=== PATIENT | female | born 1960 | race Caucasian/White ===

== ENCOUNTER → 2017-05-10 | Outpatient (CLI) | payer OTHER ==
[~2017-05-10] MED LIST: ACIPHEX 20 MG T20 MG PO; ALPRAZOLAM 0.50.5 M1 PO; ASPIR 8181 MG PO; DARVON-N100 MG PO; ESTROVEN 155 M155 MG PO; FLAX OIL1000 MG PO; GEODON40 MG PO; GLUCOSAMINE HC500 MG PO; LOVASTATIN 20 M20 MG PO; LOVASTATIN PO; MULTIVITAMIN PO; NORCO 5-325 TA1 EACH PO; PRINIVIL10 MG PO; PROZAC10 MG PO; VITAMIN E400 UNIT PO; ZYBAN150 MG PO
== END ==
LOC: M.RAD 04-19 11:59 → M.MRI 04-28 17:30 → M.RAD 13:00 → M.MRI 13:00
DX: Z12.31 Encounter for screening mammogram for malignant neoplasm of breast (principal); S46.812A Strain of other muscles, fascia and tendons at shoulder and upper arm level, left arm, initial encounter; M25.512 Pain in left shoulder; X58.XXXA Exposure to other specified factors, initial encounter; Y93.89 Activity, other specified; Y92.89 Other specified places as the place of occurrence of the external cause; Y99.8 Other external cause status

== ENCOUNTER 2017-05-18 06:44 | Emergency (ER) | payer OTHER ==
[~2017-05-18] VITALS: Ht 172.7 cm; Wt 122.5 kg
[~2017-05-18 06:44] MED LIST changes: -NORCO 5-325 TA1 EACH PO
[2017-05-18] MEDS ORDERED: NORCO 5-325 TA1 EACH PO (08:15)
[2017-05-18 08:34] VITALS: BP 142/101
== END 2017-05-18 08:34 | disposition home or self-care (01) ==
LOC: M.ERS 06:44
DX: S62.666A Nondisplaced fracture of distal phalanx of right little finger, initial encounter for closed fracture (principal); F32.9 Major depressive disorder, single episode, unspecified; F41.0 Panic disorder [episodic paroxysmal anxiety]; Z85.850 Personal history of malignant neoplasm of thyroid; Z88.5 Allergy status to narcotic agent; Z88.0 Allergy status to penicillin; X58.XXXA Exposure to other specified factors, initial encounter; Y93.89 Activity, other specified; Y92.89 Other specified places as the place of occurrence of the external cause; Y99.0 Civilian activity done for income or pay

== ENCOUNTER → 2019-02-12 | Outpatient (CLI) | payer OTHER ==
[~2019-02-12] MED LIST changes: +NORCO 5-325 TA1 EACH PO
== END ==
LOC: M.RAD 13:58
DX: Z12.31 Encounter for screening mammogram for malignant neoplasm of breast (principal)

== ENCOUNTER → 2019-02-15 | Outpatient (CLI) | payer OTHER | LOC: M.ULTRA 13:08 | DX: N63.13 Unspecified lump in the right breast, lower outer quadrant (principal); N63.23 Unspecified lump in the left breast, lower outer quadrant ==

== ENCOUNTER → 2019-12-24 | Outpatient (CLI) | payer OTHER | LOC: M.ULTRA 12-19 12:21 | PROVIDERS: ATTEND Nurse Practitioner Family | DX: N63.13 Unspecified lump in the right breast, lower outer quadrant (principal); N63.14 Unspecified lump in the right breast, lower inner quadrant; N63.11 Unspecified lump in the right breast, upper outer quadrant; N63.21 Unspecified lump in the left breast, upper outer quadrant; R10.811 Right upper quadrant abdominal tenderness; N63.20 Unspecified lump in the left breast, unspecified quadrant; N63.10 Unspecified lump in the right breast, unspecified quadrant; Z90.49 Acquired absence of other specified parts of digestive tract ==

== ENCOUNTER → 2020-01-24 | Outpatient (CLI) | payer OTHER | LOC: M.RAD 09:50 | PROVIDERS: ATTEND Family Medicine | DX: Z12.31 Encounter for screening mammogram for malignant neoplasm of breast (principal); N60.82 Other benign mammary dysplasias of left breast; N60.81 Other benign mammary dysplasias of right breast ==